=== PATIENT | female | born 1950 | race Two or more races ===

== ENCOUNTER 2021-04-29 05:59 | Day surgery (SDC) | payer OTHER ==
[~2021-04-29 05:59] MED LIST: ADALAT CC60 MG PO; ALDACTONE25 MG PO; CLONAZEPAM0.5 MG PO; CLONAZEPAM1 MG PO; JANUVIA100 MG PO; NAPROXEN500 MG PO; PAXIL10 MG/5 ML PO; SIMVASTATIN40 MG PO; SYNTHROID100 MCG PO
[2021-04-29] MEDS ORDERED: ULTRACET PO (11:54)
[2021-04-29] MEDS ORDERED: MACROBID 100 M100 MG PO (11:54)
== END 2021-04-29 16:25 | disposition home or self-care (01) ==
LOC: CIR.AMB 05:59
PROVIDERS: ATTEND Obstetrics & Gynecology Gynecology
DX: N81.3 Complete uterovaginal prolapse (principal); Z20.822 Contact with and (suspected) exposure to COVID-19